=== PATIENT | female | born 2005 | race Caucasian/White ===

== ENCOUNTER 2024-02-14 11:51 | Inpatient (IN) | payer OTHER ==
[2024-02-14] MEDS ORDERED: TRANEXAMIC 1,000 MG/100ML-NACL 1,000 MG in EMPTY BAG 1 BAG IV PRN (13:51)
[2024-02-14] MEDS ORDERED: miSOPROStoL 200 MCG TAB RECTAL PRN (13:51)
[2024-02-14] MEDS ORDERED: miSOPROStoL 200 MCG TAB PO PRN (13:51)
[2024-02-14] MEDS ORDERED: METHYLERGONOVINE 0.2 MG/ML 1 ML AMP IM PRN (13:51)
[2024-02-14] MEDS ORDERED: TERBUTALINE 1 MG/ML VIAL SQ PRN (13:51)
[2024-02-14] MEDS ORDERED: OXYTOCIN 10 UNIT/ML 1 ML VIAL IM PRN (13:51)
[2024-02-14] MEDS ORDERED: LIDOCAINE 0.5% (PF) 5 MG/ML (50 ML SDV) SQ PRN (13:51)
[2024-02-14] MEDS ORDERED: CARBOPROST TROMETHAMINE 250 MCG/ML 1 ML AMP IM PRN (13:51)
[2024-02-14 14:05] LABS: Basophils % (A) 0 %; Eosinophils % (A) 0 %; HCT 32.8 % (34.0-46.0); HGB 11.2 gm/dL (11.4-16.0); Lymphocytes # (A) 1.3 k/uL (1.0-4.8); Lymphocytes % (A) 13 %; MCH 31.1 pg (25.0-35.0); MCV 91.5 fL (80.0-100.0); Mean Platelet Volume 8.4; Monocytes # (A) 0.4 k/uL (0-1.0); Monocytes % (A) 4 %; Neutrophils # (A) 8.8 k/uL (1.3-7.7); Neutrophils % (A) 82 %; Platelet Count 311 k/uL (150-450); RBC 3.59 m/uL (3.80-5.40); RDW 12.8 % (11.5-15.5); WBC 10.7 k/uL (4.0-11.0)
--- NOTE | 2024-02-14 18:07 | P.HPOB ---
History of Present Illness H&P Date: 02/14/24 Chief Complaint: IUP @ 37 3/7 weeks, oligohydramnios, IUGR 18 yo at 37 3/7 weeks, that presents to labor and delivery for induction of labor secondary to intrauterine growth restriction and oligohydramnios. Patient was seen in the office on 02/06 ultrasound was performed revealing an estimated weight of 5 pounds, 4th percentile. NEVAEH at that time was noted to be 9. Patient presented today NEVAEH noted to be 3, normal UA Dopplers, reactive NST. Patient was counseled on need for induction of labor secondary to oligohydramnios. Patient has been receiving routine care with myself. Review of Systems Constitutional: Denies chills, Denies fatigue, Denies fever Ears, nose, mouth and throat: Denies headache Cardiovascular: Denies leg edema Respiratory: Denies dyspnea Gastrointestinal: Denies nausea, Denies vomiting Genitourinary: Reports Past Medical History Past Medical History: No Reported History History of Any Multi-Drug Resistant Organisms: None Reported Past Surgical History: No Surgical Hx Reported Past Anesthesia/Blood Transfusion Reactions: No Reported Reaction Past Psychological History: No Psychological Hx Reported Smoking Status: Never smoker Past Alcohol Use History: None Reported Past Drug Use History: None Reported - Past Family History Father Family Medical History: No Reported History Medications and Allergies Home Medications Medication Instructions Recorded Confirmed Type No Known Home Medications 02/14/24 02/14/24 History Allergies Allergy/AdvReac Type Severity Reaction Status Date / Time No Known Allergies Allergy Verified 02/14/24 13:50 Exam Osteopathic Statement: *. No significant issues noted on an osteopathic structural exam other than those noted in the History and Physical/Consult. Vital Signs Temp Pulse Resp BP 02/14/24 14:03 98.3 F 116 H 14 121/69 Intake and Output 02/14/24 02/14/24 02/14/24 06:59 14:59 22:59 Other: # Voids 1 Weight 68.492 kg Targeted physical exam is performed this date General Is well-nourished well- developed female in no acute distress, breathing is nonlabored, abdomen is gravid, heart tones noted to be category 1, on cervical exam she is 1/50/firm anterior cervix. Patient is counseled on induction of labor options including Cervidil and Dilapan. Patient elects Dilapan. 18-year-old 1 para 0 at 37-3/7 weeks presents for induction secondary to oligohydramnios, intrauterine growth restriction. Options for induction of labor are discussed. Patient elects Dilapan. Benefits of procedure were discussed and all questions were answered. Informed consent was obtained. A sterile light speculum was placed into the vagina and the cervix was visualized. The cervix and vaginal leal were cleaned with Betadine. Sponge stick was used to grasp the anterior cervical lip, a another sponge stick was used to grasp the handle of Dilapan israel and inserted the israel through the external os gradually without force. This was repeated until adequate Dilapan rods were inserted. A total of 4 rods were inserted. Gauze pad moistened with sterile water was inserted to keep Dilapan rods in place. 1 gauze pad was placed. At this time the speculum and all instruments were removed from the patient's vaginal vault. Patient tolerated procedure well. Results Result Diagrams: 02/14/24 13:40 Abnormal Lab Results - Last 24 Hours (Table) 02/14/24 Range/Units 13:40 RBC 3.59 L (3.80-5.40) m/uL Hgb 11.2 L (11.4-16.0) gm/dL Hct 32.8 L (34.0-46.0) % Neutrophils # 8.8 H (1.3-7.7) k/uL Assessment and Plan (1) 37 or more weeks gestation of Current Visit: Yes Status: Acute Code(s): EQP3185 - SNOMED Code(s): 77506210 (2) Intrauterine growth restriction (IUGR) affecting care of mother Current Visit: Yes Status: Acute Code(s): O36.5990 - MATERN CARE FOR OTH OR SUSP POOR FETL GRTH, UNSP TRI, UNSP SNOMED Code(s): 439175676 Plan: 18-year-old 1 para 0 at 37 and 3 presents for induction of labor. Dilapan rods placed without difficulty. Options for analgesia are discussed. Dilapan rods will be removed in the morning and Pitocin augmentation of labor will be begun along with amniotomy. All questions are answered patient states understanding will plan continuous monitoring given intrauterine growth restriction and oligohydramnios.
[2024-02-14] MEDS ORDERED: NALBUPHINE 10 MG/ML (10 ML MDV) IV PRN (18:17)
[2024-02-15] MEDS: LACTATED RINGERS 1,000 ML IV SCH (00:40)
[2024-02-15] MEDS: OXYTOCIN 30 UNITS/500 ML NS 30 UNIT in SALINE 1 500ML.BAG IV SCH (06:37)
[2024-02-15] MEDS ORDERED: SODIUM CHLORIDE 0.9% 250 ML BAG ONE (11:39)
[2024-02-15] MEDS ORDERED: fentaNYL (PF) 50 MCG/ML 5 ML AMP ONE (11:39)
[2024-02-15] MEDS ORDERED: ROPIVACAINE 5 MG/ML 30 ML VIAL ONE (11:39)
[2024-02-15] MEDS ORDERED: ROPIVACAINE 225 MG, fentaNYL (PF). 450 MCG in SODIUM CHLORIDE 0.9% 171 ML EPIDURAL ONE (12:37)
[2024-02-15] MEDS ORDERED: diphenhydrAMINE 25 MG CAP PO PRN (16:32)
[2024-02-15] MEDS ORDERED: BENZOCAINE/MENTHOL SPRAY 1 GM/SPRAY AEROSOL TOPICAL PRN (16:32)
[2024-02-15] MEDS ORDERED: ZOLPIDEM 5 MG TAB PO PRN (16:32)
[2024-02-15] MEDS ORDERED: HYDROCORTISONE 2.5% RECTAL CREAM 30 GM TUBE RECTAL PRN (16:32)
[2024-02-15] MEDS ORDERED: diphenhydrAMINE 50 MG CAP PO PRN (16:32)
[2024-02-15] MEDS ORDERED: SIMETHICONE 80 MG CHEWABLE PO PRN (16:32)
[2024-02-15] MEDS ORDERED: LANOLIN CREAM 1 GM TUBE TOPICAL PRN (16:32)
[2024-02-15] MEDS ORDERED: diphenhydrAMINE 50 MG/ML 1 ML VIAL IVP PRN ×2 (16:32)
--- NOTE | 2024-02-15 16:35 | P.PROBDLV ---
Vaginal Delivery Note - . Vaginal Delivery Note: 18-year-old 1 para 0 at 37-3/7 weeks that was admitted last evening for induction of labor secondary to intrauterine growth restriction and oligohydramnios. Patient was admitted and Dilapan was placed. Patient did well through the evening. Dilapan was removed this morning and she was noted to be 3 cm. Pitocin augmentation of labor was begun amniotomy was performed. Patient progressed through labor eventually becoming uncomfortable and requesting epidural placement. Epidural was placed without difficulty by the anesthesia department. Patient made good progress toward complete dilation. Once completely dilated patient began pushing and had a normal spontaneous vaginal delivery of a viable female at 1606, weight of 5 pounds 0 ounces, Apgars of 9 and 9 at 1 and 5 minutes respectively. After 2-minute delay the umbilical cord was doubly clamped and cut and the placenta was delivered spontaneously intact with a three-vessel cord being noted. Inspection the patient's vaginal vault a first-degree vaginal laceration was appreciated. This was repaired in the usual fashion with 3-0 Rapide. In addition a left labial laceration was appreciated and was repaired with 3-0 Rapide in a running locked fashion. Hemostasis was noted after closure. Uterus was noted to be firm below the umbilicus. Bladder was drained via red rubber catheter for approximately 100 cc of clear yellow urine. Estimated blood loss 100 cc. Patient and infant tole rated delivery well and are resting comfortably. All counts were noted be correct x 2 at the end of the delivery.
[2024-02-15] MEDS ORDERED: OXYTOCIN 30 UNITS/500 ML NS 30 UNIT in SALINE 1 500ML.BAG IV SCH (16:45)
[2024-02-15] MEDS: ACETAMINOPHEN TAB 500 MG TAB PO SCH (21:05)
[2024-02-15] MEDS: SENNOSIDES-DOCUSATE SODIUM 1 EACH TAB PO SCH (21:11)
[2024-02-15] MEDS: IBUPROFEN 800 MG TAB PO SCH (21:11)
[2024-02-16 06:22] LABS: Basophils % (A) 0 %; Eosinophils # (A) 0.1 k/uL (0-0.7); Eosinophils % (A) 1 %; HCT 30.3 % (34.0-46.0); HGB 10.5 gm/dL (11.4-16.0); Lymphocytes # (A) 2.3 k/uL (1.0-4.8); Lymphocytes % (A) 19 %; MCH 30.6 pg (25.0-35.0); MCHC 34.6 g/dL (31.0-37.0); MCV 88.6 fL (80.0-100.0); Mean Platelet Volume 9.1; Monocytes # (A) 0.7 k/uL (0-1.0); Monocytes % (A) 6 %; Neutrophils # (A) 8.9 k/uL (1.3-7.7); Neutrophils % (A) 73 %; Platelet Count 249 k/uL (150-450); RBC 3.41 m/uL (3.80-5.40); RDW 13.2 % (11.5-15.5); WBC 12.2 k/uL (4.0-11.0)
[2024-02-16 07:39] VITALS: RESP 18
--- NOTE | 2024-02-16 09:06 | P.DS ---
Providers Date of admission: 02/14/24 13:10 Expected date of discharge: 02/16/24 Attending physician: Hilaria Collier Primary care physician: Stated None - Discharge Diagnosis(es) (1) 37 or more weeks gestation of Current Visit: Yes Status: Acute (2) Intrauterine growth restriction (IUGR) affecting care of mother Current Visit: Yes Status: Acute (3) Status post normal vaginal delivery Current Visit: Yes Status: Acute (4) Obstetrical laceration, first degree Current Visit: Yes Status: Acute Hospital Course: 18-year-old 1 now para 1 that presented to labor and delivery on 02/14 for induction of labor secondary to intrauterine growth restriction and oligohydramnios. Patient was admitted and Dilapan was placed. The next morning Dilapan was removed and Pitocin augmentation of labor was begun. Amniotomy was performed and clear fluid was obtained. Patient made good progress through labor eventually becoming uncomfortable and requesting epidural. Patient progressed to complete and had a normal spontaneous vaginal delivery of a viable female infant at 1606, weight of 5 pounds 0 ounces. Patient did sustain a first-degree vaginal laceration along with a left labial laceration during delivery. Patient states she is feeling well this morning. She is ambulating and voiding without difficulty. She is tolerating a regular diet without nausea or vomiting. She states her pain is well-controlled. She is breast-feeding without difficulty. Lochia is moderate. She would like discharge home at 24 hours of possible. Patient Condition at Discharge: Good Plan - Discharge Summary New Discharge Prescriptions: No Action No Known Home Medications Discharge Medication List No Known Home Medications 02/14/24 [History] Follow up Appointment(s)/Referral(s): Hilaria Collier DO [Doctor of Osteopathic Medicine] - 6 Weeks Patient Instructions/Handouts: Vaginal Delivery (GEN), Vaginal Delivery (DC) Activity/Diet/Wound Care/Special Instructions: No tub baths or intercourse until 6 weeks . [id number] ibuprofen 600 mg or 3 tablets every 6 hours as needed for pain. Discharge Disposition: HOME SELF-CARE
[2024-02-16 16:11] VITALS: BP 116/65; PULSE 86; TEMP 98.5
== END 2024-02-16 16:53 | disposition home or self-care (01) | DRG 560 ==
LOC: 4FBP 13:10
PROVIDERS: ADMIT Obstetrics & Gynecology Obstetrics; ATTEND Obstetrics & Gynecology Obstetrics
PROC: 10907ZC Drainage of Amniotic Fluid, Therapeutic from Products of Conception, Via Natural or Artificial Opening (ICD-10-PCS; 2024-02-14)
PROC: 3E033VJ Introduction of Other Hormone into Peripheral Vein, Percutaneous Approach (ICD-10-PCS; 2024-02-14)
PROC: 10E0XZZ Delivery of Products of Conception, External Approach (ICD-10-PCS; principal; 2024-02-15)
PROC: 0HQ9XZZ Repair Perineum Skin, External Approach (ICD-10-PCS; 2024-02-15)
DX: O41.03X0 Oligohydramnios, third trimester, not applicable or unspecified (principal); O36.5930 Maternal care for other known or suspected poor fetal growth, third trimester, not applicable or unspecified; O70.0 First degree perineal laceration during delivery; Z37.0 Single live birth; Z3A.37 37 weeks gestation of pregnancy
CPT/HCPCS: 59200; 85025; 86850; 86900; 86901; 88307